=== PATIENT | male | born 1945 | race Caucasian/White ===

== ENCOUNTER 2023-08-24 12:41 | Emergency (ER) | payer OTHER ==
[2023-08-24 13:15] LABS: Hematocrit 35.4 % (39.6-49.0); Lymphocytes % 42.9 % (15.3-44.8); MCV 89.6 fL (80-100); MPV 7.8 fL (7.6-11.3); Platelets 168 thou/uL (152-406); RBC Red Blood Cell Count 3.95 M/uL (4.33-5.43)
[2023-08-24] MEDS ORDERED: NA CHLORIDE 0.9% 1,000 ML ONE (13:17)
[2023-08-24 13:34] LABS: AST/SGOT 12 U/L (15-37); Albumin 3.5 g/dL (3.4-5.0); Alkaline Phosphatase 40 U/L (45-117); BUN Blood Urea Nitrogen 24 mg/dL (7-18); Bicarbonate 28 mEq/L (21-32); Bilirubin Direct 0.1 mg/dL (0-0.2); Bilirubin Indirect, Calculated 0.4 mg/dL (0.2-0.8); Bilirubin Total 0.5 mg/dL (0.2-1.0); Glomerular Filtration Rate 46 ml/min (=/>90); Glucose Level 96 mg/dL (74-106); Magnesium 2.3 mg/dL (1.6-2.4); NT PRO-BNP 94 pg/mL (<450); Potassium 4.1 mEq/L (3.5-5.1); Protein, Total 8.7 g/dL (6.4-8.2); Sodium Level 135 mEq/L (136-145); Troponin High Sensitivity 5.6 pg/mL (<58.9)
[2023-08-24 13:35] LABS: ALT/SGPT < 10 U/L (16-61)
[2023-08-24 15:03] LABS: Specific Gravity 1.019 (1.005-1.030); Urine Bacteria None Seen /HPF (<20); Urine Bilirubin NEGATIVE (Negative); Urine Blood Negative (Negative); Urine Clarity Turbid (Clear); Urine Color Light-Yellow (Yellow); Urine Glucose NEGATIVE (Negative); Urine Mucus Slight /HPF (None Seen); Urine Protein NEGATIVE (Negative); Urine RBC <5 /HPF (None Seen); Urine Urobilinogen Normal (Normal); Urine pH 5.5 (5.0-7.0)
--- NOTE | 2023-08-24 16:56 | ER ---
Nurse's Notes [facility] Name: Oz Hebert Age: 78 yrs Sex: Male : 1945 Arrival Date: 08/24/2023 Time: 12:41 Bed IW10 Private MD: Diagnosis: Hypotension, unspecified Presentation: 08/24 12:53 Chief complaint: EMS states: Were called to [place] office for patient with low BP. Per EMS cm10 pts BP at the [place] office was 60/50, pt received 200mL NS bolus and BP increased to the 70s systolic. Pt received his Midodrine prior to EMS arrival. Pt has no complaints at this time. Coronavirus screen: Vaccine status: Patient reports receiving the 2nd dose of the covid vaccine. Client denies travel out of the [place] in the last 14 days. Ebola Screen: Patient denies travel to an Ebola-affected area in the 21 days before illness onset. No symptoms or risks identified at this time. Initial Sepsis Screen: Does the patient meet any 2 criteria? No. Patient's initial sepsis screen is negative. Does the patient have a suspected source of infection? No. Patient's initial sepsis screen is negative. Risk Assessment: Do you want to hurt yourself or someone else? Patient reports no desire to harm self or others. Onset of symptoms was August 24, 2023. 12:53 Method Of Arrival: EMS: [facility] cm10 12:53 Acuity: ANKIT 3 cm10 Triage Assessment: 12:59 General: Appears in no apparent distress. comfortable, Behavior is calm, cooperative. cm10 Pain: Denies pain. 13:00 EENT: No deficits noted. No signs and/or symptoms were reported regarding the EENT cm10 system. Neuro: No deficits noted. [place] Agitation-Sedation Scale (RASS): 0 - Alert and Calm Level of Consciousness is awake, alert, obeys commands, Oriented to person, place, time, situation. Cardiovascular: No deficits noted. Patient's skin is warm and dry. Respiratory: No deficits noted. Airway is patent Respiratory effort is even, unlabored, Respiratory pattern is regular, symmetrical. GI: No deficits noted. No signs and/or symptoms were reported involving the gastrointestinal system. : No deficits noted. No signs and/or symptoms were reported regarding the genitourinary system. Derm: No deficits noted. No signs and/or symptoms reported regarding the dermatologic system. Skin is intact, Skin is pink, warm \T\ dry. Musculoskeletal: No deficits noted. No signs and/or symptoms reported regarding the musculoskeletal system. Range of motion: intact in all extremities. Historical: - Allergies: 12:55 No Known Allergies; cm10 - Home Meds: 12:55 midodrine 5 mg oral tablet 1 tab 2 times per day [Active]; rivaroxaban 15 mg oral cm10 tablet once [Active]; - PMHx: 12:55 Polyp of Colon; Actinic Keratosis; Degenerativae disc disease; Parkinson's disease; cm10 Atrial fibrillation; Presbyopia; Tinnitus; Anemia; - Immunization history:: Adult Immunizations up to date. - Social history:: Smoking status: Patient denies any tobacco usage or history of. - Family history:: not pertinent. Screenin:00 [facility] ED Fall Risk Assessment (Adult) History of falling in the last 3 months, cm10 including since admission No falls in past 3 months (0 pts) Confusion or Disorientation No (0 pts) Intoxicated or Sedated No (0 pts) Impaired Gait No (0 pts) Mobility Assist Device Used No (0 pt) Altered Elimination No (0 pt) Score/Fall Risk Level 0 - 2 = Low Risk Oriented to surroundings, Maintained a safe environment, Educated pt \T\ family on fall prevention, incl call for assistance when getting out of bed, Assessed \T\ reinforced patient's understanding of fall precautions, Provided non-skid footwear, Hourly rounding (assess needs \T\ fall precautionary measures) done. Abuse screen: Denies threats or abuse. Denies injuries from another. Nutritional screening: No deficits noted. Tuberculosis screening: No symptoms or risk factors identified. Assessment: 17:17 Reassessment: No changes from previously documented assessment. Patient and/or family ll1 updated on plan of care and expected duration. Pain level reassessed. Patient is alert, oriented x 3, equal unlabored respirations, skin warm/dry/pink. Patient states feeling better. Vital Signs: 12:53 BP 122 / 71; Pulse 73; Resp 18; Temp 97.6(A); Pulse Ox 98% on R/A; Weight 103.42 kg; cm10 Height 6 ft. 7 in. ; Pain 0/10; 13:00 BP 122 / 68; Pulse 70; Resp 18; Pulse Ox 98% on R/A; os 14:00 BP 131 / 86; Pulse 72; Resp 18; Pulse Ox 100% on R/A; os 15:00 BP 135 / 80; Pulse 71; Resp 18; Pulse Ox 100% on R/A; os 17:17 BP 155 / 82; Pulse 72; Resp 17; Pulse Ox 100% ; ll1 12:53 Body Mass Index 25.68 (103.42 kg, 200.66 cm) cm10 12:53 Pain Scale: Adult cm10 ED Course: 12:43 Patient arrived in ED. sb4 12:45 Fabiano White MD is Attending Physician. rt 12:55 Triage completed. cm10 13:00 Arm band placed on Patient placed in an exam room, on a stretcher. cm10 13:00 Patient has correct armband on for positive identification. Bed in low position. Call cm10 light in reach. Side rails up X2. Provided Education on: ER process and procedures. . 13:01 Maintain EMS IV. Dressing intact. Good blood return noted. Site clean \T\ dry. Gauge \T\ cm 10 site: 20g RAC. 13:17 Cory Ash, RN is Primary Nurse. os 15:02 XRAY Chest (1 view) In Process Unspecified. EDMS 17:19 IV discontinued, intact, bleeding controlled, No redness/swelling at site. Pressure ll1 dressing applied. 17:19 No provider procedures requiring assistance completed. ll1 Administered Medications: 13:18 Drug: NS 0.9% IV 1000 ml IV at 1 bolus Per protocol; 1000 mL bolus Route: IV; Rate: 1 cm10 bolus; Site: right antecubital; 17:19 Follow up: IV Status: Completed infusion; IV Intake: 1000ml ll1 Medication: 13:00 VIS not applicable for this client. cm10 Intake: 17:19 IV: 1000ml; Total: 1000ml. ll1 Outcome: 16:55 Discharge ordered by MD. rt 17:19 Discharged to home via wheelchair, ll1 17:19 Condition: stable 17:19 Discharge instructions given to patient, Instructed on discharge instructions, follow up and referral plans. Demonstrated understanding of instructions, follow-up care, 17:20 Patient left the ED. ll1 Signatures: Dispatcher MedHoUna Cisneros, RN RN ll1 Julieta Ravi, PAFloryC PA-C sb4 Fabiano White MD MD rt Cory Ash, RN RN os Meeta Mcguire RN RN cm10
--- NOTE | 2023-08-24 16:56 | EDPHYS ---
Physician Documentation [facility] Name: Oz Hebert Age: 78 yrs Sex: Male : 1945 Arrival Date: 08/24/2023 Time: 12:41 Bed IW10 Private MD: ED Physician Fabiano White HPI: 08/24 13:15 This 78 yrs old Male presents to ER via EMS with complaints of Weakness, hypotension. rt 13:15 Patient presents to the ED with generalized weakness, reported hypotension. Of note, he rt does have a history of Parkinson's disease and does take midodrine. The patient states that he believes that he missed his dose of midodrine this morning. He was given midodrine at the [facility] as well as 500 cc bolus. His blood pressures did improve, states that he is back to baseline now. Denies other acute complaints at this time, symptoms are moderate in severity, no other aggravating alleviating factors.. Historical: - Allergies: 12:55 No Known Allergies; cm10 - Home Meds: 12:55 midodrine 5 mg oral tablet 1 tab 2 times per day [Active]; rivaroxaban 15 mg oral cm10 tablet once [Active]; - PMHx: 12:55 Polyp of Colon; Actinic Keratosis; Degenerativae disc disease; Parkinson's disease; cm10 Atrial fibrillation; Presbyopia; Tinnitus; Anemia; - Immunization history:: Adult Immunizations up to date. - Social history:: Smoking status: Patient denies any tobacco usage or history of. - Family history:: not pertinent. ROS: 13:15 Constitutional: Negative for fever, chills, and weight loss, Cardiovascular: Negative rt for chest pain, palpitations, and edema, Respiratory: Negative for shortness of breath, cough, wheezing, and pleuritic chest pain, Abdomen/GI: Negative for abdominal pain, nausea, vomiting, diarrhea, and constipation, MS/Extremity: Negative for injury and deformity, Skin: Negative for injury, rash, and discoloration, Psych: Negative for depression, anxiety, suicide ideation, homicidal ideation, and hallucinations, 13:15 Neuro: Positive for weakness, Negative for altered mental status, Exam: 13:15 Constitutional: This is a well developed, well nourished patient who is awake, alert, rt and in no acute distress. Head/Face: Normocephalic, atraumatic. Chest/axilla: Normal chest wall appearance and motion. Nontender with no deformity. No lesions are appreciated. Cardiovascular: Regular rate and rhythm with a normal S1 and S2. No gallops, murmurs, or rubs. Normal PMI, no JVD. No pulse deficits. Respiratory: Lungs have equal breath sounds bilaterally, clear to auscultation and percussion. No rales, rhonchi or wheezes noted. No increased work of breathing, no retractions or nasal flaring. Abdomen/GI: Soft, non-tender, with normal bowel sounds. No distension or tympany. No guarding or rebound. No evidence of tenderness throughout. Skin: Warm, dry with normal turgor. Normal color with no rashes, no lesions, and no evidence of cellulitis. MS/ Extremity: Pulses equal, no cyanosis. Neurovascular intact. Full, normal range of motion. Psych: Awake, alert, with orientation to person, place and time. Behavior, mood, and affect are within normal limits. 13:15 ECG was reviewed by the Attending Physician. 13:15 Neuro: Awake, alert, resting tremor noted, Vital Signs: 12:53 BP 122 / 71; Pulse 73; Resp 18; Temp 97.6(A); Pulse Ox 98% on R/A; Weight 103.42 kg; cm10 Height 6 ft. 7 in. ; Pain 0/10; 13:00 BP 122 / 68; Pulse 70; Resp 18; Pulse Ox 98% on R/A; os 14:00 BP 131 / 86; Pulse 72; Resp 18; Pulse Ox 100% on R/A; os 15:00 BP 135 / 80; Pulse 71; Resp 18; Pulse Ox 100% on R/A; os 17:17 BP 155 / 82; Pulse 72; Resp 17; Pulse Ox 100% ; ll1 12:53 Body Mass Index 25.68 (103.42 kg, 200.66 cm) cm10 12:53 Pain Scale: Adult cm10 MDM: 12:45 Patient medically screened. rt 17:44 Differential Diagnosis Dehydration, Parkinson's disease with autonomic instability, rt anemia, electrolyte disturbance. Data reviewed: vital signs, nurses notes, lab test result(s), EKG, radiologic studies. Consideration of Admission/Observation Escalation of care including admission/observation considered. I considered the following discharge prescriptions or medication management in the emergency department Medications were administered in the Emergency Department. See MAR. Independent interpretation of the following test(s) in the Emergency Department X-Ray: My interpretation is No consolidation seen on interpretation of x-ray images. Care significantly affected by the following chronic conditions: Parkinson's disease. Counseling: I had a detailed discussion with the patient and/or guardian regarding the historical points, exam findings, and any diagnostic results supporting the discharge/admit diagnosis, lab results, radiology results, the need for outpatient follow up. Response to treatment: the patient's symptoms have markedly improved after treatment. 08/24 12:46 Order name: UAM; Complete Time: 15:33 rt 08/24 13:13 Order name: Basic Metabolic Panel; Complete Time: 13:51 EDMS 08/24 13:13 Order name: Liver (Hepatic) Function; Complete Time: 13:51 EDMS 08/24 13:13 Order name: Troponin High Sensitivity; Complete Time: 13:51 EDMS 08/24 13:13 Order name: NT PRO-BNP; Complete Time: 13:51 EDMS 08/24 13:13 Order name: Magnesium; Complete Time: 13:51 EDMS 08/24 13:14 Order name: CBC with Automated Diff; Complete Time: 13:51 EDMS 08/24 12:46 Order name: XRAY Chest (1 view); Complete Time: 17:03 rt 08/24 12:46 Order name: EKG; Complete Time: 13:42 rt 08/24 12:46 Order name: Cardiac monitoring; Complete Time: 13:01 rt 08/24 12:46 Order name: EKG - Nurse/Tech; Complete Time: 13:18 rt 08/24 12:46 Order name: IV Saline Lock; Complete Time: 13:01 rt 08/24 12:46 Order name: Labs collected and sent; Complete Time: 13:01 rt 08/24 12:46 Order name: O2 Per Protocol; Complete Time: 13:01 rt 08/24 12:46 Order name: O2 Sat Monitoring; Complete Time: 13:01 rt EC:15 Rate is 70 beats/min. Rhythm is regular, Normal Sinus Rhythm with Right bundle branch rt block. QRS [place] is Normal. MI interval is normal. QRS interval is normal. QT interval is normal. No Q waves. T waves are Normal. No ST changes noted. Interpreted by me. Administered Medications: 13:18 Drug: NS 0.9% IV 1000 ml IV at 1 bolus Per protocol; 1000 mL bolus Route: IV; Rate: 1 cm10 bolus; Site: right antecubital; 17:19 Follow up: IV Status: Completed infusion; IV Intake: 1000ml ll1 Disposition Summary: 08/24/23 16:55 Discharge Ordered Notes: Location: Home rt Problem: an acute exacerbation rt Symptoms: are resolved rt Condition: Stable rt Diagnosis - Hypotension, unspecified rt Followup: rt - With: Private Physician - When: 2 - 3 days - Reason: Discharge Instructions: - Discharge Summary Sheet rt - Hypotension rt Forms: - Medication Reconciliation Form rt - Thank You Letter rt - Antibiotic Education rt - Prescription Opioid Use rt - Patient Portal Instructions rt - Leadership Thank You Letter rt Signatures: Dispatcher [employer] Fabiano Collins MD MD rt Meeta Mcguire RN RN cm10 NicknUa RN 1
--- NOTE | 2023-08-24 16:57 | RAD REPORT ---
EXAM DESCRIPTION: Dave Single View08/24/2023 3:01 pm CLINICAL HISTORY: CHEST PAIN COMPARISON: No comparisons TECHNIQUE: Portable AP view of the chest. FINDINGS: The lungs are clear. Mild hyperinflation may relate to COPD. No pneumothorax or effusion. The cardiomediastinal contours are unremarkable. Post surgical clips along the left axilla. Left ro tator cuff anchors present. IMPRESSION: No acute cardiopulmonary process.
[2023-08-24 17:44] VITALS: TEMP 97.6
[2023-08-24 17:47] VITALS: O2SAT 100
[2023-08-24 17:51] VITALS: BP 155/82
--- NOTE | 2023-08-25 09:49 | EKG ---
Test Date: 2023-08-24 Test Time: 13:11:36 Easement Worker: DARRON MEASUREMENT RESULTS: Intervals: Rate: 70 CA: 178 QRSD: 130 QT: 432 QTc: 466 [place]: P: 29 CA: 178 QRS: 25 T: 3 INTERPRETIVE STATEMENTS: Normal sinus rhythm Right bundle branch block Abnormal ECG No previous ECG available for comparison Electronically Signed On 08-25-23 09:46:18 CDT by Terry Li
== END 2023-08-24 17:20 | disposition home or self-care (01) ==
LOC: ER 12:41
DX: I95.9 Hypotension, unspecified (principal); R53.1 Weakness; I48.91 Unspecified atrial fibrillation
CPT/HCPCS: 96361; 93005; 85025; 81001; 80048; 36415; 83735; 80076; 84484; 83880; 71045; 96360; 99284; J7030

== ENCOUNTER 2024-08-14 11:46 | Emergency (ER) | payer OTHER ==
[2024-08-14 13:12] LABS: Absolute Eosinophils 0.1 K/uL (0-0.5); Absolute Lymphocytes (CBC) 2.2 K/uL (0.7-4.9); Absolute Monocytes 0.3 K/uL (0.1-1.3); Absolute Neutrophil 3.6 K/uL (1.8-8.0); Basophils % 0.3 % (0-1.3); Eosinophils % 0.9 % (0-4.4); Hematocrit 36.1 % (39.6-49.0); Hemoglobin 12.3 g/dL (13.6-17.9); Lymphocytes % 35.5 % (15.3-44.8); MCH 30.8 pg (27.0-35.0); MCV 90.7 fL (80-100); MPV 7.9 fL (7.6-11.3); Monocytes % 5.1 % (3.3-12.3); Neutrophils % 58.2 % (41.7-73.7); Nucleated Red Blood Cells % 0.1 % (0-0); Platelets 178 thou/uL (152-406); RBC Red Blood Cell Count 3.98 M/uL (4.33-5.43); Red Cell Distribution Width 14.5 % (12.1-15.2)
[2024-08-14 13:21] LABS: Calcium Oxalate Crystals- Ur Few /HPF (None Seen); Specific Gravity 1.026 (1.005-1.030); Sqamous Epithelial <5 /HPF (None Seen); Urine Bacteria <20 /HPF (<20); Urine Bilirubin NEGATIVE (Negative); Urine Blood Negative (Negative); Urine Clarity Extremely Turbid (Clear); Urine Color Yellow (Yellow); Urine Culture Reflex Order NOT NEEDED; Urine Glucose NEGATIVE (Negative); Urine Ketones NEGATIVE (Negative); Urine Microscopic Reflex YN ORDER UMIC; Urine Mucus 1+ /HPF (None Seen); Urine Nitrite NEGATIVE (Negative); Urine Protein 1+ (Negative); Urine RBC None Seen /HPF (None Seen); Urine Urobilinogen Normal (Normal); Urine WBC Clump Rare /HPF (None Seen); Urine Yeast (Budding) Trace /HPF (None Seen); Urine pH 5.5 (5.0-7.0)
[2024-08-14] MEDS ORDERED: NA CHLORIDE 0.9% 500 ML ONE (13:21)
--- NOTE | 2024-08-14 13:26 | RAD REPORT ---
EXAMINATION: ONE VIEW CHEST XR CLINICAL INDICATION: Male, 78 years old.dizziness TECHNIQUE: 1 View, AP supine, X-ray of the chest was performed. [id number]. COMPARISON: 08/24/2023 FINDINGS: Lungs and pleura: Clear lungs. No effusion. Heart and mediastinum: Normal heart size. Unremarkable mediastinal contours. Osseous structures: No acute abnormality. Tubes/lines: None Other: None. IMPRESSION: No acute intrathoracic abnormality.
[2024-08-14 13:32] LABS: AST/SGOT 12 U/L (15-37); Albumin 3.7 g/dL (3.4-5.0); Albumin/Globulin Ratio 0.7 (1.1-1.8); Alkaline Phosphatase 50 U/L (45-117); Anion Gap 7.3 mEq/L (5.0-15.0); BUN Blood Urea Nitrogen 25 mg/dL (7-18); Bicarbonate 27 mEq/L (21-32); Bilirubin Total 0.6 mg/dL (0.2-1.0); Globulin 5.1 g/dL (2.3-3.5); Glomerular Filtration Rate 45 ml/min (=/>90); Glucose Level 107 mg/dL (74-106); Magnesium 2.3 mg/dL (1.6-2.4); NT PRO-BNP 239 pg/mL (<450); Potassium 4.3 mEq/L (3.5-5.1); Protein, Total 8.8 g/dL (6.4-8.2); Sodium Level 135 mEq/L (136-145); Troponin High Sensitivity 7.2 pg/mL (<58.9)
[2024-08-14 13:33] LABS: ALT/SGPT < 14 U/L (16-61); Bilirubin Direct < 0.2 mg/dL (0-0.2); Bilirubin Indirect, Calculated 0.4 mg/dL (0.2-0.8)
--- NOTE | 2024-08-14 14:16 | EDPHYS ---
Physician Documentation [facility] Name: Oz Hebert Age: 78 yrs Sex: Male : 1945 Arrival Date: 08/14/2024 Time: 11:46 Bed 26 Private MD: ED Physician Rambo Hill HPI: 08/14 13:04 This 78 yrs old Male presents to ER via EMS with complaints of General Weakness. rn 13:04 Patient reports generalized weakness, somewhat of a fall yesterday but no injuries. rn states was slowly laid down to the ground. Reports has Parkinson's disease. No recent changes in medication. and patient report visual hallucinations, is seeing guys fighting that are not there. Denies fever or chills. Does report increase in urination yesterday. No abdominal or chest pain. No productive cough. No shortness of breath.. Onset: The symptoms/episode began/occurred yesterday. Severity of symptoms: At their worst the symptoms were moderate in the emergency department the symptoms are unchanged. The patient has not experienced similar symptoms in the past. The patient has not recently seen a physician. Historical: - Allergies: 12:13 No Known Allergies; jl7 - Home Meds: 12:13 midodrine 5 mg Oral tablet 1 tab 2 times per day [Active]; Eliquis oral [Active]; jl7 - PMHx: 12:13 actinic keratosis; Anemia; Atrial fibrillation; Degenerativae disc disease; Parkinson's jl7 disease; Polyp of Colon; Presbyopia; tinnitus; - Immunization history:: Adult Immunizations up to date. - Infectious Disease History:: Denies. - Social history:: Smoking status: Patient denies any tobacco usage or history of. - Family history:: not pertinent. - Hospitalizations: : No recent hospitalization is reported. ROS: 13:04 Constitutional: Negative for fever, chills, and weight loss, Neck: Negative for injury, rn pain, and swelling, Cardiovascular: Negative for chest pain, palpitations, and edema, Respiratory: Negative for shortness of breath, cough, wheezing, and pleuritic chest pain, Abdomen/GI: Negative for abdominal pain, nausea, vomiting, diarrhea, and constipation, Back: Negative for injury and pain, MS/Extremity: Negative for injury and deformity, Skin: Negative for injury, rash, and discoloration, Neuro: Positive for generalized weakness and malaise Exam: 13:04 Constitutional: This is a well developed, well nourished patient who is awake, alert, rn and in no acute distress. Eyes: Pupils equal round and reactive to light, extra-ocular motions intact. ENT: Dry mucous membranes Cardiovascular: Regular rate and rhythm. No pulse deficits. Respiratory: No increased work of breathing, no retractions or nasal flaring. Abdomen/GI: Soft, non-tender MS/ Extremity: Pulses equal, no cyanosis. Neurovascular intact. Full, normal range of motion. Equal circumference. Neuro: Awake and alert, GCS 15, oriented to person, place, time, and situation. Cranial nerves II-XII grossly intact. Motor strength 4/5 in all extremities. Sensory grossly intact. 14:14 ECG was reviewed by the Attending Physician. rn Vital Signs: 12:00 BP 113 / 78; Pulse 82; Resp 13; Pulse Ox 95% ; me1 12:10 BP 113 / 76; Pulse 76; Resp 17; Temp 97.3; Pulse Ox 96% ; Weight 104.33 kg; Height 6 jl7 ft. 6 in. ; Pain 0/10; 13:00 BP 132 / 81; Pulse 73; Resp 12; Pulse Ox 97% ; me1 14:00 BP 165 / 98; Pulse 74; Resp 15; Temp 98.4; Pulse Ox 98% ; me1 12:10 Body Mass Index 26.58 (104.33 kg, 198.12 cm) jl7 12:10 Pain Scale: Adult jl7 MDM: 12:11 Medical Screening Exam initiated rn 14:10 Differential Diagnosis Dehydration, UTI, adverse effect of Parkinson's meds, worsening rn of Parkinson disease. Data reviewed: vital signs, nurses notes, lab test result(s), radiologic studies, plain films, and as a result, I will discharge patient. 14:15 Counseling: I had a detailed discussion with the patient and/or guardian regarding the rn historical points, exam findings, and any diagnostic results supporting the discharge/admit diagnosis, lab results, radiology results, the need for outpatient follow up, to return to the emergency department if symptoms worsen or persist or if there are any questions or concerns that arise at home. Response to treatment: the patient's symptoms have mildly improved after treatment, and as a result, I will discharge patient. Special discussion: I discussed with the patient/guardian in detail that at this point there is no indication for admission to the hospital. It is understood, however, that if the symptoms persist or worsen the patient needs to return immediately for re-evaluation. 08/14 12:31 Order name: Basic Metabolic Panel; Complete Time: 13:33 rn 08/14 12:31 Order name: CBC with Diff; Complete Time: 13:33 rn 08/14 12:31 Order name: LFT's; Complete Time: 13:33 rn 08/14 12:31 Order name: Magnesium; Complete Time: 13:33 rn 08/14 12:31 Order name: NT PRO-BNP; Complete Time: 13:33 rn 08/14 12:31 Order name: Troponin HS; Complete Time: 13:33 rn 08/14 12:31 Order name: Urinalysis w/ reflexes; Complete Time: 13:33 rn 08/14 12:31 Order name: XRAY Chest (1 view); Complete Time: 13:33 rn 08/14 12:31 Order name: Cardiac monitoring; Complete Time: 13:26 rn 08/14 12:31 Order name: EKG - Nurse/Tech; Complete Time: 14:10 rn 08/14 12:31 Order name: IV Saline Lock; Complete Time: 13:06 rn 08/14 12:31 Order name: Labs collected and sent; Complete Time: 13:06 rn 08/14 12:31 Order name: O2 Per Protocol; Complete Time: 13:06 rn 08/14 12:31 Order name: O2 Sat Monitoring; Complete Time: 13:06 rn EC:14 Rate is 73 beats/min. Rhythm is regular. QRS [place] is Normal. MD interval is normal. QRS rn interval is prolonged at 130 msec. QT interval is normal. No Q waves. T waves are Normal. No ST changes noted. Clinical impression: NSR w/ Non-specific ST/T Changes. Interpreted by me. Reviewed by me. Administered Medications: 13:24 Drug: NS 0.9% IV 500 ml 500 ml IV at 1 bolus once; to be given as a bolus over 30 me1 minutes Volume: 500 ml; Route: IV; Rate: 1 bolus; Site: right antecubital; 14:10 Follow up: Response: No adverse reaction; IV Status: Completed infusion; IV Intake: me1 500ml Disposition Summary: 08/14/24 14:15 Discharge Ordered Notes: Location: Home rn Problem: new rn Symptoms: have improved rn Condition: Stable rn Diagnosis - Weakness rn - Dehydration rn Followup: rn - With: Private Physician - When: As needed - Reason: Recheck today's complaints, Re-evaluation by your physician Discharge Instructions: - Discharge Summary Sheet rn - Dehydration, Elderly rn - Weakness rn Forms: - Medication Reconciliation Form rn - Antibiotic english language learner tutor - Prescription Opioid Use rn - Patient Portal Instructions rn - Leadership Thank You Letter rn Signatures: Dispatcher [employer] Rambo Zavaleta MD MD rn James Xiao RN RN jl7 Marcie Grubbs, RN RN me1
--- NOTE | 2024-08-14 14:16 | ER ---
Nurse's Notes [facility] Name: Oz Hebert Age: 78 yrs Sex: Male : 1945 Arrival Date: 08/14/2024 Time: 11:46 Bed 26 Private MD: Diagnosis: Weakness;Dehydration Presentation: 08/14 12:10 Chief complaint: EMS states: Toned out for fall, pt getting out of vehicle and slid jl7 down, couldn't get back up, hx of Parkinson's. Pt denies pain, reports feeling a little more weak than normal. Coronavirus screen: At this time, the client does not indicate any symptoms associated with coronavirus-19. Ebola Screen: No symptoms or risks identified at this time. Initial Sepsis Screen: Does the patient meet any 2 criteria? No. Patient's initial sepsis screen is negative. Does the patient have a suspected source of infection? No. Patient's initial sepsis screen is negative. Risk Assessment: Do you want to hurt yourself or someone else? Patient reports no desire to harm self or others. Onset of symptoms was August 14, 2024. Care prior to arrival: BP90/60, 84HR, 94% O2. 12:10 Method Of Arrival: EMS: [facility] jl7 12:10 Acuity: ANKIT 3 jl7 Triage Assessment: 12:13 General: Appears in no apparent distress. uncomfortable, Behavior is calm, cooperative, jl7 appropriate for age. Pain: Denies pain. Neuro: [place] Agitation-Sedation Scale (RASS): 0 - Alert and Calm Level of Consciousness is awake, alert, obeys commands, Oriented to person, place, time, situation. Cardiovascular: Patient's skin is warm and dry. Respiratory: Airway is patent Respiratory effort is even, unlabored, Respiratory pattern is regular, symmetrical. Derm: Skin is pink, warm \T\ dry. Historical: - Allergies: 12:13 No Known Allergies; jl7 - Home Meds: 12:13 midodrine 5 mg Oral tablet 1 tab 2 times per day [Active]; Eliquis oral [Active]; jl7 - PMHx: 12:13 actinic keratosis; Anemia; Atrial fibrillation; Degenerativae disc disease; Parkinson's jl7 disease; Polyp of Colon; Presbyopia; tinnitus; - Immunization history:: Adult Immunizations up to date. - Infectious Disease History:: Denies. - Social history:: Smoking status: Patient denies any tobacco usage or history of. - Family history:: not pertinent. - Hospitalizations: : No recent hospitalization is reported. Screenin:22 [facility] ED Fall Risk Assessment (Adult) History of falling in the last 3 months, me1 including since admission Yes- single mechanical fall (1 pt) Confusion or Disorientation No (0 pts) Intoxicated or Sedated No (0 pts) Impaired Gait Yes (1 pt) Mobility Assist Device Used Yes (1 pt) Altered Elimination No (0 pt) Score/Fall Risk Level 0 - 2 = Low Risk Maintained a safe environment, Provided non-skid footwear, Hourly rounding (assess needs \T\ fall precautionary measures) done. Abuse screen: Denies threats or abuse. Nutritional screening: No deficits noted. Tuberculosis screening: No symptoms or risk factors identified. Assessment: 10:22 General: Appears comfortable, well groomed, well developed, well nourished, Behavior is me1 calm, cooperative, appropriate for age, Reports Toned out for fall, pt getting out of vehicle and slid down, couldn't get back up, hx of Parkinson's. Pt denies pain, reports feeling a little more weak than normal. Per EMS patient was having some visual hallucinations. Pain: Denies pain. Neuro: Level of Consciousness is awake, alert, obeys commands, Oriented to person, place, time, situation, Appropriate for age visual hallucinations per EMS. Cardiovascular: Patient's skin is warm and dry. Respiratory: Airway is patent Respiratory effort is even, unlabored, Respiratory pattern is regular, symmetrical. GI: No signs and/or symptoms were reported involving the gastrointestinal system. : No signs and/or symptoms were reported regarding the genitourinary system. EENT: No signs and/or symptoms were reported regarding the EENT system. Derm: Skin is intact, is healthy with good turgor, Skin is pink, warm \T\ dry. Musculoskeletal: No signs and/or symptoms reported regarding the musculoskeletal system. Injury Description: Toned out for fall, pt getting out of vehicle and slid down, couldn't get back up, hx of Parkinson's. Pt denies pain, reports feeling a little more weak than normal. Vital Signs: 12:00 BP 113 / 78; Pulse 82; Resp 13; Pulse Ox 95% ; me1 12:10 BP 113 / 76; Pulse 76; Resp 17; Temp 97.3; Pulse Ox 96% ; Weight 104.33 kg; Height 6 7 ft. 6 in. ; Pain 0/10; 13:00 BP 132 / 81; Pulse 73; Resp 12; Pulse Ox 97% ; me1 14:00 BP 165 / 98; Pulse 74; Resp 15; Temp 98.4; Pulse Ox 98% ; me1 12:10 Body Mass Index 26.58 (104.33 kg, 198.12 cm) jl7 12:10 Pain Scale: Adult 7 ED Course: 10:22 Patient has correct armband on for positive identification. Bed in low position. Call me1 light in reach. Side rails up X2. Provided Education on: POC. Verbalized understanding.. Client placed on continuous cardiac and pulse oximetry monitoring. NIBP monitoring applied. secured entrance monitor on. Pulse ox on. NIBP on. 10:22 No provider procedures requiring assistance completed. me1 12:10 Patient arrived in ED. jl7 12:11 Rambo Hill MD is Attending Physician. rn 12:13 Triage completed. jl7 12:13 Arm band placed on right wrist. 7 12:42 Marcie Grubbs, RN is Primary Nurse. md1 13:06 Basic Metabolic Panel Sent. me1 13:06 CBC with Diff Sent. me1 13:06 LFT's Sent. me1 13:06 Magnesium Sent. me1 13:06 NT PRO-BNP Sent. me1 13:06 Troponin HS Sent. me1 13:06 Initial lab(s) drawn, by md, sent to lab. Inserted saline lock: 20 gauge in right me1 antecubital area, using aseptic technique. 13:18 XRAY Chest (1 view) In Process Unspecified. EDMS 14:11 EKG done, by ED staff, reviewed by Rambo Hill MD. md1 14:27 IV discontinued, intact, bleeding controlled, No redness/swelling at site. Pressure me1 dressing applied. Administered Medications: 13:24 Drug: NS 0.9% IV 500 ml 500 ml IV at 1 bolus once; to be given as a bolus over 30 me1 minutes Volume: 500 ml; Route: IV; Rate: 1 bolus; Site: right antecubital; 14:10 Follow up: Response: No adverse reaction; IV Status: Completed infusion; IV Intake: me1 500ml Medication: 10:22 VIS not applicable for this client. me1 Intake: 14:10 IV: 500ml; Total: 500ml. me1 Outcome: 14:15 Discharge ordered by . rn 14:27 Discharged to home ambulatory, me1 14:27 Condition: stable 14:27 Discharge instructions given to patient, significant other, Instructed on discharge instructions, follow up and referral plans. Demonstrated understanding of instructions, follow-up care, 14:28 Patient left the ED. me1 Signatures: Dispatcher [employer] EDMS Rambo Hill MD MD rn Leal, Jahala, RN RN jl7 Marcie Grubbs RN RN me1 Corrections: (The following items were deleted from the chart) 14:07 12:10 Chief complaint: EMS states: Toned out for fall, pt getting out of vehicle and me1 slid down, couldn't get back up, hx of Parkinson's. Pt denies pain, reports feeling a little more weak than normal jl7
[2024-08-14 16:44] VITALS: BP 165/98; TEMP 98.4; O2SAT 98
--- NOTE | 2024-08-16 12:22 | EKG ---
Test Date: 2024-08-14 Test Time: 14:12:28 [employer] Equipment Operator: TM MEASUREMENT RESULTS: Intervals: Rate: 73 [place]: 188 QRSD: 130 QT: 414 QTc: 456 [place]: P: 57 [place]: 188 QRS: 10 T: -16 INTERPRETIVE STATEMENTS: Normal sinus rhythm Right bundle branch block Abnormal ECG Compared to ECG 08/24/2023 13:11:36 No significant changes Electronically Signed On 08-16-24 12:17:15 CDT by Masoud Gregory
== END 2024-08-14 14:28 | disposition home or self-care (01) ==
LOC: ER 11:46
DX: R53.1 Weakness (principal); E86.0 Dehydration; I48.91 Unspecified atrial fibrillation; G20.A1 Parkinson's disease without dyskinesia, without mention of fluctuations; Z79.01 Long term (current) use of anticoagulants
CPT/HCPCS: 93005; 85025; 81001; 80048; 36415; 83735; 80076; 84484; 83880; 71045; 96360; 99285; J7040